=== PATIENT | female | born 1975 | race Two or more races ===

== ENCOUNTER 2022-11-03 05:20 | Inpatient (IN) | payer MEDICAID ==
[2022-11-03] VITALS (56 sets, daily range): BP systolic 86–147; BP diastolic 51–92
[~2022-11-03] VITALS: Ht 162.6 cm; Wt 91.2 kg
[~2022-11-03 05:20] MED LIST: CYCL10TA21 PO; GABA-532 PO
[2022-11-03] MEDS ORDERED: LACTATED RINGERS 1,000 ML IV SCH (06:00)
[2022-11-03 06:14] LABS: HCG SCREEN NEGATIVE
[2022-11-03] MEDS ORDERED: THROMBIN (BOVINE) 5000 UNITS/VIAL TOP ONE (06:28)
[2022-11-03] MEDS ORDERED: BUPIVACAINE HCL/PF 0.5% (5MG/ML) 30ML ONE (06:28)
[2022-11-03] MEDS ORDERED: GENTAMICIN SULF 40MG/ML 2ML VIAL ONE (06:29)
[2022-11-03] MEDS ORDERED: LIDOCAINE HCL/EPINEPHRINE 1%-EPI 1:100,000 20 ML VIAL ONE (06:29)
[2022-11-03] MEDS ORDERED: MIDAZOLAM HCL 2 MG/2 ML VIAL ONE (06:49)
[2022-11-03] MEDS ORDERED: ROCURONIUM BROMIDE 10MG/ML VIAL 5ML IV ONE ×2 (06:49→07:11)
[2022-11-03] MEDS ORDERED: HYDROMORPHONE HCL/PF 2MG/ML CPJ ONE (06:49)
[2022-11-03] MEDS ORDERED: PROPOFOL 200MG/20ML VIAL IV ONE (06:49)
[2022-11-03] MEDS ORDERED: NEOSTIGMINE METHYLSULFATE 1MG/ML 10 ML VIAL ONE (07:31)
[2022-11-03] MEDS ORDERED: GLYCOPYRROLATE 0.2 MG/ML 2ML VIAL ONE (07:31)
[2022-11-03] MEDS ORDERED: ONDANSETRON HCL 4MG/2ML INJ ONE (09:01)
[2022-11-03] MEDS ORDERED: EPHEDRINE SULFATE 50MG/ML VIAL ONE (09:01)
[2022-11-03] MEDS ORDERED: NICARDIPINE 100 MG in SODIUM CHLORIDE 0.9% 60 ML IV PRN (09:30)
[2022-11-03] MEDS: MORPHINE SULFATE 4 MG/ML CPJ (NOT FOR IM USE) IV PRN ×5 (10:00→23:39)
[2022-11-03] MEDS ORDERED: NALOXONE HCL 0.4MG/ML VIAL IV PRN (10:00)
[2022-11-03] MEDS: DEXT 5%/LACTATED RINGERS 1,000 ML IV SCH ×2 (10:01→18:55)
[2022-11-03] MEDS ORDERED: CEFAZOLIN 1000MG PREMIX 50 ML IV NR (11:30)
[2022-11-03] MEDS: DEXAMETHASONE 4MG/ML 1ML VIAL IV SCH ×3 (11:42→23:38)
[2022-11-03 13:43] LABS: CHLORIDE 105 mEq/L (98-107)
[2022-11-03] MEDS ORDERED: CEFAZOLIN SODIUM 1000MG/VIAL IV SCH (14:00)
[2022-11-03 17:12] LABS: BG BASE EXCESS -2.4 mmol/L (-2.0-2.0); BG CARBOXYHEMOGLOBIN 0.2 % (0.5-1.5); BG FRACTION INSPIRED OXYGEN 50; BG HCO3 ACT 22.4 mmol/L (22.0-26.0); BG METHEMOGLOBIN 0.3 % (0.0-1.5); BG OXYHEMOGLOBIN 98.5 % (94.0-97.0); BG PCO2 38.5 mmHg (35.0-45.0); BG PH 7.382 (7.350-7.450); BG SAMPLE SITE RIGHT RADIAL; BG TOTAL HEMOGLOBIN 12.3 g/dL (12.0-18.0); BG VENT MODE MASK - SIMPLE
[2022-11-03] MEDS: CEFAZOLIN 1000MG PREMIX 50 ML IV SCH (20:14)
[2022-11-03] MEDS: IPRATROPIUM/ALBUTEROL 0.5-3(2.5)MG/3ML NEB HHN SCH (20:56)
[2022-11-03 22:09] LABS: HEMATOCRIT. 33.6 % (36.0-48.0); HEMOGLOBIN. 10.8 g/dL (12.0-16.0); MEAN CORPUSCULAR HEMOGLOBIN 25.5 pg (28.0-32.0); MEAN PLATELET VOLUME 8.6 fl (7.4-10.4); PLATELET 318 x1000/uL (130-400); RED BLOOD CELL COUNT 4.25 mill/uL (4.2-5.4); RED CELL DISTRIBUTION WIDTH 16.4 % (11.6-14.6)
[2022-11-03 22:26] LABS: PLATELET ESTIMATE NORMAL
[2022-11-04] VITALS (69 sets, daily range): BP systolic 90–146; BP diastolic 47–83
[2022-11-04] MEDS: IPRATROPIUM/ALBUTEROL 0.5-3(2.5)MG/3ML NEB HHN SCH ×4 (01:01→20:19)
[2022-11-04] MEDS: CEFAZOLIN 1000MG PREMIX 50 ML IV SCH (03:48)
[2022-11-04] MEDS: MORPHINE SULFATE 4 MG/ML CPJ (NOT FOR IM USE) IV PRN ×3 (03:48→11:39)
[2022-11-04 05:27] LABS: HEMATOCRIT. 31.8 % (36.0-48.0); HEMOGLOBIN. 10.2 g/dL (12.0-16.0); MEAN CORPUSCULAR HEMOGLOBIN 25.2 pg (28.0-32.0); MEAN CORPUSCULAR VOLUME 78.6 fL (81.0-99.0); PLATELET 297 x1000/uL (130-400); RED BLOOD CELL COUNT 4.05 mill/uL (4.2-5.4); RED CELL DISTRIBUTION WIDTH 15.9 % (11.6-14.6)
[2022-11-04 05:37] LABS: CHLORIDE 103 mEq/L (98-107)
[2022-11-04] MEDS: DEXT 5%/LACTATED RINGERS 1,000 ML IV SCH ×2 (05:38→15:36)
[2022-11-04] MEDS: DEXAMETHASONE 4MG/ML 1ML VIAL IV SCH ×2 (05:41→11:39)
[2022-11-04 12:07] LABS: PLATELET ESTIMATE NORMAL
[2022-11-04] MEDS ORDERED: CLONIDINE 0.1MG TABLET PO PRN ×2 (13:15→13:30)
[2022-11-04] MEDS ORDERED: MAGNESIUM/ALUMINUM HYDROXIDE/SIMETHICONE 30ML UDC PO PRN ×2 (13:15→13:30)
[2022-11-04] MEDS ORDERED: ONDANSETRON HCL 4MG/2ML INJ IV PRN ×2 (13:15→13:30)
[2022-11-04] MEDS ORDERED: IPRATROPIUM/ALBUTEROL 0.5-3(2.5)MG/3ML NEB NEB PRN (13:15)
[2022-11-04] MEDS ORDERED: GUAIFENESIN 200MG/10ML SUGAR FREE UDC PO PRN (13:30)
[2022-11-04] MEDS ORDERED: ACETAMINOPHEN 325MG TABLET PO PRN ×2 (13:30)
[2022-11-04] MEDS: HYDROCODONE/ACETAMINOPHEN 5/325MG TABLET PO PRN ×2 (15:36→20:11)
[2022-11-04 16:06] LABS: TOTAL IRON BINDING CAPACITY 447 ug/dL (250-450)
[2022-11-04 16:37] LABS: FOLIC ACID (FOLATE) SERUM 13.5 ng/mL (>5.38)
[2022-11-05] VITALS (61 sets, daily range): BP systolic 82–153; BP diastolic 40–100
[2022-11-05] MEDS: HYDROCODONE/ACETAMINOPHEN 5/325MG TABLET PO PRN ×3 (00:30→13:07)
[2022-11-05] MEDS: DEXT 5%/LACTATED RINGERS 1,000 ML IV SCH ×2 (00:31→11:52)
[2022-11-05] MEDS: IPRATROPIUM/ALBUTEROL 0.5-3(2.5)MG/3ML NEB HHN SCH ×3 (01:14→13:41)
[2022-11-05 05:31] LABS: BASOPHILS % 0.2 % (0.0-2.0); HEMATOCRIT. 29.3 % (36.0-48.0); HEMOGLOBIN. 9.2 g/dL (12.0-16.0); LYMPHOCYTES % 12.9 % (20.0-50.0); MEAN CORPUSCULAR HEMOGLOBIN 25.3 pg (28.0-32.0); MEAN CORPUSCULAR VOLUME 80.7 fL (81.0-99.0); MEAN PLATELET VOLUME 9.2 fl (7.4-10.4); MONOCYTES % 8.7 % (2.0-8.0); NEUTROPHILS % 78.2 % (40.0-76.0); PLATELET 221 x1000/uL (130-400); RED BLOOD CELL COUNT 3.63 mill/uL (4.2-5.4); RED CELL DISTRIBUTION WIDTH 16.7 % (11.6-14.6)
[2022-11-05 06:02] LABS: CHLORIDE 110 mEq/L (98-107)
[2022-11-05 06:10] LABS: HDL CHOLESTEROL 77 mg/dL (40-59); LDL CHOLESTEROL 47 mg/dL (5-100)
[2022-11-05] MEDS ORDERED: PANTOPRAZOLE SODIUM 40 MG/VIAL IV SCH (09:00)
[2022-11-05] MEDS ORDERED: HYDR-4001 PO (14:13)
[2022-11-05] MEDS ORDERED: TOPUD PO (14:13)
[2022-11-05] MEDS ORDERED: FERR-63 PO (14:13)
[2022-11-07] MEDS ORDERED: FERROUS SULFATE 325MG TABLET PO SCH (09:00)
== END 2022-11-05 17:31 | disposition home health service (06) | DRG 321 ==
LOC: OR 05:20 → MICUSO 05:21
PROVIDERS: ADMIT Internal Medicine; ATTEND Internal Medicine
PROC: 0RG10A0 Fusion of Cervical Vertebral Joint with Interbody Fusion Device, Anterior Approach, Anterior Column, Open Approach (ICD-10-PCS; principal; 2022-11-03)
PROC: 0RB30ZZ Excision of Cervical Vertebral Disc, Open Approach (ICD-10-PCS; 2022-11-03)
PROC: 01N10ZZ Release Cervical Nerve, Open Approach (ICD-10-PCS; 2022-11-03)
PROC: 4A11X4G Monitoring of Peripheral Nervous Electrical Activity, Intraoperative, External Approach (ICD-10-PCS; 2022-11-03)
DX: M48.02 Spinal stenosis, cervical region (principal); G82.50 Quadriplegia, unspecified; M47.12 Other spondylosis with myelopathy, cervical region; E87.1 Hypo-osmolality and hyponatremia; Z20.822 Contact with and (suspected) exposure to COVID-19; D64.9 Anemia, unspecified; F17.210 Nicotine dependence, cigarettes, uncomplicated; R26.89 Other abnormalities of gait and mobility; M47.22 Other spondylosis with radiculopathy, cervical region; G89.29 Other chronic pain; R73.9 Hyperglycemia, unspecified; Z82.3 Family history of stroke; Z82.49 Family history of ischemic heart disease and other diseases of the circulatory system
CPT/HCPCS: 36415; 36600; 71045; 72040; 72141; 76000; 80048; 80053; 80061; 82375; 82607; 82728; 82746; 82805; 83036; 83540; 83550; 84703; 85025; 86850; 86900; 87426; 88304; 88311; 93970; 94640; 97162; 97166; C9113; C9803; J0690; J1100; J1170; J1580; J2250; J2270; J2405; J2704; J2710; J3490; J7050; J7121; L0172